=== PATIENT | male | born 1990 | race Caucasian/White ===

== ENCOUNTER 2016-11-09 14:04 | Emergency (ER) | payer OTHER ==
--- NOTE | 2016-11-09 19:01 | ED CLINICAL REPORT ---
Clinical Report - Physicians/Mid Levels [facility] [address] [place] [address] 11/09/2016 14:06 Patient: AFUA GARCIA Time Seen: 14:14. Arrived- By private vehicle. Historian- patient. HISTORY OF PRESENT ILLNESS Chief Complaint: DIZZINESS. At its maximum, severity described as moderate. When seen in the E.D., severity described as mild. Modifying factors- worsened by movement. Not relieved by anything. This started about 3 days ago and is still present. The patient has had loss of appetite, fatigue and muscle aches. No weight loss, headache, visual disturbance or weakness. Denies sleep problem. No decreased urine output. (PT states his 4-year-old daughter has had a recent viral illness.). Similar symptoms previously: Occasionally. Recent medical care: Not recently seen/assessed. REVIEW OF SYSTEMS No fever, sore throat, sinus drainage, nasal congestion or cough. No difficulty breathing, chest pain, abdominal pain, nausea or vomiting. No diarrhea, black stools, bloody stools, difficulty with urination or skin rash. No back pain, calf pain, headache, blackouts or double vision. The patient has had chills. No difficulty with ambulation. All systems otherwise negative, except as recorded above. PAST HISTORY Problems: Dehydration. Diarrhea. Immunizations. Diabetes Mellitus Type 1. Additional Surgeries: no known surgeries. Medications: Lantus Subcutaneous. HumaLOG Subcutaneous. SOCIAL HISTORY Never smoker. No alcohol use or drug use. ADDITIONAL NOTES The nursing notes have been reviewed. PHYSICAL EXAM Vital Signs: 11/09/2016 14:17 BP: 119/70. HR: 119. RR: 18. O2 saturation: 96%. Temp: 98.9 F. Have been reviewed. Appearance: Alert. No acute distress. Eyes: Pupils equal, round and reactive to light. Eyes normal inspection. ENT: Nose normal. Neck: Normal inspection. CVS: Normal heart rate and rhythm. Heart sounds normal. Pulses normal. Respiratory: No respiratory distress. Breath sounds normal. Abdomen: No visible injury. Soft and nontender. Back: Normal inspection. Skin: Skin warm and dry. Normal skin color. No rash. Normal skin turgor. Extremities: Extremities exhibit normal ROM. No lower extremity edema. Neuro: Oriented X 3. No motor deficit. No sensory deficit. LABS, X-RAYS, AND EKG Laboratory Tests: CBC w Diff: (SHANNA: 11/09/2016 14:28) ( MsgRcvd 11/09/2016 14:51) Final results Test Result Flag Units (Reference) WHITE BLOOD COUNT 5.3 K/uL (4.5-11.5) RED BLOOD COUNT 5.96 H M/uL (4.50-5.90) HEMOGLOBIN 15.7 gm/dL (13.5-17.5) HEMATOCRIT 47.8 % (41.0-53.0) MEAN CELL VOLUME 80 fL (80-100) MEAN CORPUSCULAR HGB 26 pg (26-34) MEAN CORPUSCULAR HGB CONC 33 g/dL (31-37) RED CELL DISTRIBUTION WIDTH 13.1 % (11.6-14.8) PLATELET COUNT 161 K/uL (150-400) LYMPH % 19.0 L % (25-40) MONO % 4.5 % (3-14) GRANULOCYTE % 76.5 CMP: (SHANNA: 11/09/2016 14:28) ( [facility] 15[facility]07) Final results Test Result Flag Units (Reference) GLUCOSE 247 H mg/dL (70-110) BUN 22 H mg/dL (7-18) CREATININE 1.1 mg/dL (0.6-1.3) Estimated GFR >60 mL/min Estimated GFR- >60 mL/min Note: Persistent reduction over 3 months in eGFR<60 mL/min/1.73 m2 defines CKD. Patients with eGFR values>=60 mL/min/1.73 m2 may also have CKD if evidence ofpersistent proteinuria. Additional information may be foundat www.kidney.org. SODIUM 138 mmol/L (136-145) POTASSIUM 4.2 mmol/L (3.5-5.1) CHLORIDE 98 mmol/L (98-107) CARBON DIOXIDE 28 mmol/L (21-32) CALCIUM 9.2 mg/dL (8.5-10.1) TOTAL PROTEIN 8.0 g/dL (6.4-8.2) ALBUMIN 4.4 g/dL (3.3-5.0) BILIRUBIN, TOTAL 0.8 mg/dL (0.0-1.0) ALKALINE PHOSPHATASE 67 U/L (46-116) AST (SGOT) 14 L U/L (15-37) ALT (SGPT) 17 U/L (12-78) . Pulse Oximetry: 11/09/2016 14:17 O2 saturation: 96%. (FIO2 - room air). Interpretation: normal. PROGRESS AND PROCEDURES Course of Care: PT was given IV fluids and Zofran, after which he reported improvement. He was worked up for his sx, and found to be positive for influenza. Tamiflu was given for this. Pt was not clinically in DKA, and blood sugar was not severely elevated. I did feel that pt was stable for d/c home. Patient counseled in person regarding the patient's stable condition, test results, diagnosis and need for follow-up. Concerns were addressed. Old medical records reviewed. Disposition: Discharged. Condition: stable and improved. CLINICAL IMPRESSION Influenza type A. INSTRUCTIONS (Your influenza test was positive. The rest of your labs look good. Your blood sugar was 247.). Warnings: GENERAL WARNINGS: Return or contact your physician immediately if your condition worsens or changes unexpectedly, if not improving as expected, or if other problems arise. Your Current Medications: CONTINUE TAKING THE FOLLOWING MEDICATIONS: HumaLOG Subcutaneous. Lantus Subcutaneous. Prescription Medications: Tamiflu 75 mg: take 1 capsule orally every 12 hours for 5 days. No refill. Substitution is permissible. Follow-up: Follow up with your doctor in five days if not better. Understanding of the discharge instructions verbalized by patient. (Electronically signed by Yasmine Correa MD 11/13/2016 8:16)
--- NOTE | 2016-11-09 19:01 | ED ORDER SUMMARY ---
..... Patient: AFUA GARCIA OrderSheet [facility] VisitID: [id number] [address] [place] [address] 25y, M Registration Date/Time: 11/09/2016 ORDER SHEET Weight: 68.0 kg (stated) Allergies: Unknown GENERAL ORDERS: CBC w Diff Urgent (14:15 11/09/2016 Juan DIANA) (Ack 14:17 Kika) (18:05 TBergley) CMP Urgent (14:15 11/09/2016 Juan DIANA) (Ack 14:17 Kika) (18:05 TBergley) Rapid Influenza Screen (Nasal Pharyngeal) (swab) Urgent (17:15 11/09/2016 Juan DIANA) (Ack 17:34 Kika) (18:05 TBergley) MEDICATION ORDERS: - (Tamiflu 75 mg PO x 1) (18:01 11/09/2016 Juan DIANA) (18:45 DBeyer R.N.) IV FLUIDS: IV NS : initial bolus 1000 mL (1000 mL/hr), then none - (NOW) (14:15 11/09/2016 Juan DIANA) (14:42 DBeyer R.N.) Zofran IV 4 mg (NOW) (14:51 11/09/2016 DBeyer R.N. per protocol) (14:54 DBeyer R.N.) IV NS : initial bolus 1000 mL (1000 mL/hr), then none - (NOW) (16:16 11/09/2016 Juan DIANA) (16:20 DBeyer R.N.) ORDER SHEET NOTES: [Electronically signed by Luke Argueta R.N. (22:11/09/2016)] [Electronically signed by Yasmine Correa MD (08:16 11/13/2016)] [Electronically locked/signed by Luke Argueta R.N. (:11/09/2016)]
--- NOTE | 2016-11-09 19:01 | ED ORDER SUMMARY ---
..... Patient: AFUA GARCIA OrderSheet [facility] VisitID: [id number] [address] [place] [address] 25y, M Registration Date/Time: 11/09/2016 ORDER SHEET Weight: 68.0 kg (stated) Allergies: Unknown GENERAL ORDERS: CBC w Diff Urgent (14:15 11/09/2016 Juan DIANA) (Ack 14:17 Kika) (18:05 TBergley) CMP Urgent (14:15 11/09/2016 Juan DIANA) (Ack 14:17 Kika) (18:05 TBergley) Rapid Influenza Screen (Nasal Pharyngeal) (swab) Urgent (17:15 11/09/2016 Juan DIANA) (Ack 17:34 Kika) (18:05 TBergley) MEDICATION ORDERS: - (Tamiflu 75 mg PO x 1) (18:01 11/09/2016 Juan DIANA) (18:45 DBeyer R.N.) IV FLUIDS: IV NS : initial bolus 1000 mL (1000 mL/hr), then none - (NOW) (14:15 11/09/2016 Juan DIANA) (14:42 DBeyer R.N.) Zofran IV 4 mg (NOW) (14:51 11/09/2016 DBeyer R.N. per protocol) (14:54 DBeyer R.N.) IV NS : initial bolus 1000 mL (1000 mL/hr), then none - (NOW) (16:16 11/09/2016 Juan DIANA) (16:20 DBeyer R.N.) ORDER SHEET NOTES: [Electronically signed by Luke Argueta R.N. (22:11/09/2016)] [Electronically signed by Yasmine Correa MD (08:16 11/13/2016)] [Electronically locked/signed by Luke Argueta R.N. (:11/09/2016)]
--- NOTE | 2016-11-09 19:01 | ED NURSING NOTES ---
Clinical Report - Nurses [facility] [address] [place] [address] 11/09/2016 14:06 Patient: AFUA GARCIA TRIAGE Triage time 14:17 Nov 09 2016. Acuity: LEVEL 3. Chief Complaint: DIZZINESS. DILIP COMA SCORE: [place] Coma Scale. (15). NIH STROKE SCALE: NIH Stroke Scale: score 0. Performed at 14:21. Level of Consciousness: alert (0). LOC Questions: both (0). LOC Commands: both (0). Best gaze: normal (0). Visual field loss: none (0). Facial palsy: normal (0). Motor arm: no drift right arm (0) and no drift left arm (0). Motor leg: no drift right leg (0) and no drift left leg (0). Limb ataxia: none (0). Sensory loss: none (0). Aphasia: none (0). Dysarthria: normal (0). Extinction and inattention: none (0). --14:21 Luke Argueta R.N. 14:17 11/09/16. BP: 119/70. HR: 119. RR: 18. O2 saturation: 96%. Temp: 98.9 F. Pain level now 0/10. --14:21 Luke Argueta R.N. Weight: 68 kg stated. Height/Length: 79 inches Per Patient. BMI: 16.9. --14:21 Luke Argueta R.N. Medications HumaLOG Subcutaneous. --14:18 Luke Argueta R.N. Lantus Subcutaneous. --14:18 Luke Argueta R.N. Allergies Unknown. --22:22 Luke Argueta R.N. History Arrived by private vehicle. ( pt reports nausea and dizziness for 3 days states that he feels he cant think right and almost passed out at work. type 1 diabetic cbg in triage 222). Onset. (3 days). SOCIAL HX: Never smoker. No alcohol use or drug use. --14:21 Luke Argueta R.N. ( No BM 2 days). --14:21 Luke Argueta R.N. PROBLEMS: Dehydration. Diarrhea. Nausea. Abdominal Pain. Diabetes Mellitus Type 1. --14:19 Luke Argueta R.N. ADDITIONAL SURGERIES: no known surgeries. Interventions ID band on patient. --14:21 Luke Argueta R.N. PHYSICAL ASSESSMENT GENERAL / NEURO / PSYCH: Alert. Oriented X 4. Appears in no acute distress. HEENT: Pupils equal, round and reactive to light. No facial asymmetry noted. Mucous membranes are pink. RESPIRATORY: Respirations not labored. Chest nontender. Breath sounds within normal limits. CVS: Capillary refill less than 2 seconds. Pulses within normal limits. GI / : ( no bm 2 days). Abdomen soft and nontender. SKIN: Skin is warm and dry. --14:22 Luke Argueta R.N. NURSING PROGRESS NOTES The initial plan of care for this patient includes an assessment with efforts to address impairment of the gastrointestinal and neurological system. This plan of care was discussed with the patient. Pulse oximeter placed on patient. Finger stick glucose: 222 14:Nov 09 2016. Patient gowned. Call light placed in reach. Side rails up x 1. Bed placed in lowest position. --14:23 Luke Argueta R.N. 14:41 11/09/2016 Site #1 started via IV in the right antecubital space with an 18g angiocath, with aseptic technique and good blood return; two attempts. Blood drawn: rainbow set. Labeled in the presence of the patient and sent to the lab. Saline lock flushed with saline. --14:42 Luke Argueta R.N. 14:42 11/09/2016 Started bag #1 1000 mL IV Fluids IV NS (Saline); bolus of 1000 mL wide open via site #1. Allergies verified and confirmed 5 rights. IV patency established. IV site checked: no pain, redness, or swelling. IV flushed thoroughly pre- and post-medication administration. Completed per protocol. --14:42 Luke Argueta R.N. 14:54 11/09/2016 Zofran (Ondansetron HCl) IVP 4 mg given over 2 minute(s) via site #1. Allergies verified and confirmed 5 rights. IV patency established. IV site checked: no pain, redness, or swelling. IV flushed thoroughly pre- and post-medication administration. IVP given by RN. --14:54 Luke Argueta R.N. 14:55 11/09/16. BP: 113/77. HR: 106. O2 saturation: 100%. --14:57 Luke Argueta R.N. ( Pt nauseous given zofran). --14:57 Luke Argueta R.N. ( md at bedside). --16:07 Luke Argueta R.N. 16:20 11/09/2016 Started bag #1 1000 mL IV Fluids IV NS (Saline); bolus of 1000 mL wide open via site #1. Allergies verified and confirmed 5 rights. IV patency established. IV site checked: no pain, redness, or swelling. IV flushed thoroughly pre- and post-medication administration. Completed per protocol. --16:20 Luke Argueta R.N. 16:25 11/09/16. BP: 111/64. HR: 102. RR: 18. O2 saturation: 99%. --16:26 Luke Argueta R.N. ( Pt tolerating PO fluid well). --16:26 Luke Argueta R.N. 16:42 11/09/2016 IV Fluids IV NS Discontinued: bag #1 infused. Total amount infused: 1000 mL. IV patency established. IV site checked: no pain, redness, or swelling. IV flushed thoroughly. --17:07 Luke Argueta R.N. ( CBG 200). --17:18 Luke Argueta R.N. 17:18 11/09/16. BP: 119/88. HR: 100. O2 saturation: 100%. --17:19 Luke Argueta R.N. 18:45 11/09/2016 Tamiflu PO 75 mg given. Allergies verified and confirmed 5 rights. --18:45 Luke Argueta R.N. 18:46 11/09/2016 IV Fluids IV NS Discontinued: bag #2 infused. Total amount infused: 1000 mL. IV patency established. IV site checked: no pain, redness, or swelling. IV flushed thoroughly. --18:46 Luke Argueta R.N. DISPOSITION / DISCHARGE 18:47 11/09/2016 Site #1 removed upon admission. Bandaid applied. --18:47 Luke Argueta R.N. 18:46 11/09/16. BP: 112/66. HR: 106. RR: 18. O2 saturation: 100%. Temp: 98.6 F. Pain level now 0/10. --18:47 Luke Argueta R.N. Departure time: 1910. Condition at departure: improved. No learning barriers present. Discharge instructions provided and reviewed with the patient. Reviewed warnings. Reviewed medication(s). Treatments reviewed. Reviewed referrals. Patient verbalized understanding. Written instructions provided in Amharic. The patient was discharged by the physician. He was discharged home and accompanied by family. He left the Emergency Department ambulatory and via private vehicle. Family member driving. --19:13 Luke Argueta R.N. Locked/Released at 11/09/2016 22:23 by Luke Argueta R.N.
--- NOTE | 2016-11-13 08:16 | ED DISCHARGE INSTRUCTIONS ---
Patient: AFUA GARCIA General Instructions [facility] VisitID: [id number] [place] [address] 25y, M Registration Date/Time: 11/09/2016 Influenza type A. INSTRUCTIONS (Your influenza test was positive. The rest of your labs look good. Your blood sugar was 247.). Warnings: GENERAL WARNINGS: Return or contact your physician immediately if your condition worsens or changes unexpectedly, if not improving as expected, or if other problems arise. Your Current Medications: CONTINUE TAKING THE FOLLOWING MEDICATIONS: HumaLOG Subcutaneous. Lantus Subcutaneous. Prescription Medications: Tamiflu 75 mg: take 1 capsule orally every 12 hours for 5 days. No refill. Substitution is permissible. Follow-up: Follow up with your doctor in five days if not better. Understanding of the discharge instructions verbalized by patient. ADDITIONAL INFORMATION Influenza (Adult) Influenza, also called the flu, is a viral illness that affects the air passages of the lungs. It differs from the common cold. It is highly contagious. It may be spread through the air by coughing and sneezing or by direct contact (touching the sick person and then touching your own eyes, nose or mouth). Illness starts 1-3 days after exposure and lasts for 1-2 weeks. Antibiotics are usually not needed unless a complication appears (ear or sinus infection or pneumonia). Symptoms may be mild or severe and can include extreme tiredness (wanting to stay in bed all day), chills, fevers, muscle aching, soreness with eye movement, headache, and a dry, hacking cough. Home Care: Avoid exposure to cigarette smoke (yours or others). Tylenol or ibuprofen (Advil) will help fever, muscle aching, and headache. To avoid risk of liver injury, aspirin should not be used in children and teenagers under 18 with this illness. Nausea and loss of appetite are common. A light diet is recommended. Avoid dehydration by drinking 6-8 glasses of fluids per day (water, sport drinks like Gatorade, soft drinks without caffeine, juices, tea, soup, etc.). Extra fluids will also help loosen secretions in the nose and lungs. Llsi-[id number] cold medicines will not shorten the duration of the illness but may be helpful for the following symptoms: cough (Robitussin DM); sore throat (Chloraseptic lozenges or spray); nasal and sinus congestion (Actifed or Sudafed). [NOTE: Do not use decongestants if you have high blood pressure.] Stay home until your fever has been gone for at least 24 hours (without the use of fever-reducing medications such as ibuprofen). Follow Up with your doctor or as directed by our staff if you are not improving over the next week. Note: If you are age 65 or older, or if you have chronic asthma or COPD, we recommend a pneumococcal vaccinationevery five years. All adults shouldreceive a yearly influenza vaccination every . Ask your doctor about this. Get Prompt Medical Attention if any of the following occur: Cough with lots of colored sputum (mucus) or blood in your sputum Chest pain, shortness of breath, wheezing, or difficulty breathing Severe headache, face, neck or ear pain New rash Fever of 100.4F (38C) oral or higher, not better with fever medication Confusion, behavior change or seizure Severe weakness or dizziness You have been given the following additional information: Influenza (Adult) (Electronically signed by Yasmine Correa MD 11/13/2016 8:16)
--- NOTE | 2016-11-13 08:17 | ED MAR SUMMARY ---
..... Medication Administration Record [facility] [address] [place] [address] Patient: AFUA GARCIA Visit ID: [id number] 25y, M Weight: 68.0 kg Height/Length: 79 in BMI: 16.9 ALLERGIES: Unknown Start 14:42 11/09/2016 Luke Argueta R.N., Stop 16:42 11/09/2016 Luke Argueta R.N. Medication Administered: IV NS (SALINE), Dose: IV Fluids, Bolus: 1000 mL wide open, Dispensed: 1000 mL bag, Site: #1 right AC. Medication Ordered: IV NS : initial bolus 1000 mL (1000 mL/hr), then none - (NOW). Given 14:54 11/09/2016 Luke Argueta R.N. Medication Administered: ZOFRAN [IVP] (ONDANSETRON HCL), Dose: 4 mg IVP over 2 minute(s), Site: #1 right AC. Medication Ordered: Zofran IV 4 mg (NOW). Start 16:20 11/09/2016 Luke Argueta R.N., Stop 18:46 11/09/2016 Luke Argueta R.N. Medication Administered: IV NS (SALINE), Dose: IV Fluids, Bolus: 1000 mL wide open, Dispensed: 1000 mL bag, Site: #1 right AC. Medication Ordered: IV NS : initial bolus 1000 mL (1000 mL/hr), then none - (NOW). Given 18:45 11/09/2016 Luke Argueta R.N. Medication Administered: TAMIFLU [PO], Dose: 75 mg PO. Medication Ordered: - (Tamiflu 75 mg PO x 1).
--- NOTE | 2016-11-13 08:17 | ED MED RECONCILIATION SUMMARY ---
Patient: AFUA GARCIA Medication Reconciliation Report [facility] VisitID: [id number] [address] [place] [address] 25y, M Registration Date/Time: 11/09/2016 Weight: 68.0 kg Height/Length: 79 in. BMI: 16.9 ALLERGIES: Unknown The patient's Home Medications are listed below: CONTINUE TAKING THE FOLLOWING MEDICATIONS: HumaLOG Subcutaneous Lantus Subcutaneous The source(s) of the original Home Medication information: Not obtained. The following Medications were given to the patient in the Emergency Department: IV NS IV Fluids bolus 1000 mL wide open, administered: 11/09/2016 2:42:00 PM Zofran [IVP] IVP 4 mg, administered: 11/09/2016 2:54:00 PM IV NS IV Fluids bolus 1000 mL wide open, administered: 11/09/2016 4:20:00 PM Tamiflu [PO] PO 75 mg, administered: 11/09/2016 6:45:00 PM The following Medications were prescribed to the patient: Tamiflu 75 mg: take 1 capsule orally every 12 hours for 5 days. No refill. Substitution is permissible. -- Yasmine Correa MD
--- NOTE | 2016-11-13 08:17 | ED MED RECONCILIATION SUMMARY ---
Patient: AFUA GARCIA Medication Reconciliation Report [facility] VisitID: [id number] [address] [place] [address] 25y, M Registration Date/Time: 11/09/2016 Weight: 68.0 kg Height/Length: 79 in. BMI: 16.9 ALLERGIES: Unknown The patient's Home Medications are listed below: CONTINUE TAKING THE FOLLOWING MEDICATIONS: HumaLOG Subcutaneous Lantus Subcutaneous The source(s) of the original Home Medication information: Not obtained. The following Medications were given to the patient in the Emergency Department: IV NS IV Fluids bolus 1000 mL wide open, administered: 11/09/2016 2:42:00 PM Zofran [IVP] IVP 4 mg, administered: 11/09/2016 2:54:00 PM IV NS IV Fluids bolus 1000 mL wide open, administered: 11/09/2016 4:20:00 PM Tamiflu [PO] PO 75 mg, administered: 11/09/2016 6:45:00 PM The following Medications were prescribed to the patient: Tamiflu 75 mg: take 1 capsule orally every 12 hours for 5 days. No refill. Substitution is permissible. -- Yasmine Correa MD
--- NOTE | 2016-11-13 08:17 | ED MAR SUMMARY ---
..... Medication Administration Record [facility] [address] [place] [address] Patient: AFUA GARCIA Visit ID: [id number] 25y, M Weight: 68.0 kg Height/Length: 79 in BMI: 16.9 ALLERGIES: Unknown Start 14:42 11/09/2016 Luke Argueta R.N., Stop 16:42 11/09/2016 Luke Argueta R.N. Medication Administered: IV NS (SALINE), Dose: IV Fluids, Bolus: 1000 mL wide open, Dispensed: 1000 mL bag, Site: #1 right AC. Medication Ordered: IV NS : initial bolus 1000 mL (1000 mL/hr), then none - (NOW). Given 14:54 11/09/2016 Luke Argueta R.N. Medication Administered: ZOFRAN [IVP] (ONDANSETRON HCL), Dose: 4 mg IVP over 2 minute(s), Site: #1 right AC. Medication Ordered: Zofran IV 4 mg (NOW). Start 16:20 11/09/2016 Luke Argueta R.N., Stop 18:46 11/09/2016 Luke Argueta R.N. Medication Administered: IV NS (SALINE), Dose: IV Fluids, Bolus: 1000 mL wide open, Dispensed: 1000 mL bag, Site: #1 right AC. Medication Ordered: IV NS : initial bolus 1000 mL (1000 mL/hr), then none - (NOW). Given 18:45 11/09/2016 Luke Argueta R.N. Medication Administered: TAMIFLU [PO], Dose: 75 mg PO. Medication Ordered: - (Tamiflu 75 mg PO x 1).
== END 2016-11-09 19:11 | disposition home or self-care (01) ==
LOC: ED SRH 14:04
DX: J10.1 Influenza due to other identified influenza virus with other respiratory manifestations (principal); E10.9 Type 1 diabetes mellitus without complications; Z79.4 Long term (current) use of insulin
CPT/HCPCS: 90100; 91400; 95059